=== PATIENT | female | born 1990 | race Caucasian/White ===

== ENCOUNTER 2017-09-05 00:55 | Observation (INO) | payer BC ==
[2017-09-05] MEDS ORDERED: Promethazine HCl 12.5 MG in Sodium Chloride 0.9% 50 ML IVPB PRN (05:11)
[2017-09-05] MEDS ORDERED: Acetaminophen 325 MG TAB PO PRN (05:12)
[2017-09-05] MEDS ORDERED: Sodium Chloride 0.9% 1,000 ML IV SCH (05:12)
[2017-09-05 06:57] VITALS: BMI 28.8
[2017-09-05] MEDS ORDERED: AMOXicillin 250 MG CAP PO SCH (07:00)
[2017-09-05] MEDS ORDERED: Clarithromycin 500 MG TAB PO SCH (07:00)
[2017-09-05 08:17] VITALS: BP 102/55; TEMP 98.2
--- NOTE | 2017-09-05 12:47 | HP ---
DATE OF ENCOUNTER: 09/05/2017 PRIMARY STOCK LAYER: Dr. Lerma in [place]. CHIEF COMPLAINT: Abdominal pain, constipation, nausea, and vomiting. HISTORY OF PRESENT ILLNESS: The patient is a 26-year-old female G4, P3 with an intrauterine pregnan cy confirmed by ultrasound of 14 weeks, who presented to the emergency room in [place] with couple day history of increasing abdominal pain, nausea, vomiting, and was sent here to the [facility] for further evaluation. The patient had a confirmed IUP here at [facility] in [place], [place] and after ER evaluation was thought to be dehydrated and have problems with hyp eremesis gravidarum and was admitted for observation. Here on the floor, I have evaluated the patie nt myself. The patient reports that she has had a longstanding history of abdominal pain while eati ng that has been so significant that she has refrained from eating since this summer well below her usual and has lost dropped 6 sizes in her clothing. The patient reports that she also has been havi ng a problem with constipation at times going more than a week before having a bowel movement. She denies any problems before a couple days ago with recurrent nausea and vomiting. The patient has a primary OB doctor in [place]. The patient denies any fever, though she says she has had some chills, denies chest pain, tho ugh she reports occasional shortness of breath. She denies persistent nausea and vomiting, though s he has had vomiting before she came here. She has had nothing since presenting to the emergency dominic . The patient denies any new rashes. She reports constipation. Denies any vaginal bleeding or le akage of fluid or urinary symptoms. The patient reports she has had in the last couple days had a v [place] large or yesterday had a very large bowel movement, emptying her bowels well and at the end of h er bowel movement, she reports dark melena stools. During the emergency room evaluation, the patien t was noted to have a rectal exam and they did not confirm blood in her stool. PAST MEDICAL HISTORY: History of urinary reflux with recurrent urinary tract infections, though she has not had a urinary tract infection for quite some time now. PAST SURGICAL HISTORY: Tonsillectomy and a tubal ligation and reversal of the tubal ligation. SOCIAL HISTORY: Denies drug, alcohol or tobacco use. ALLERGIES: No known drug allergies. MEDICATIONS: vitamins. OB LABS: Unavailable. REVIEW OF SYSTEMS: Per HPI. PHYSICAL EXAMINATION: VITAL SIGNS: Blood pressure 111/63, temperature 98.6, pulse of 66, and respiratory rate 18. GENERAL: She appears to be in no acute distress. She is alert and oriented, cooperative and pleasa nt to interact with. HEENT: Normocephalic and atraumatic. LUNGS: Clear to auscultation bilaterally. HEART: Regular rate and rhythm. ABDOMEN: Soft. She does have a little bit of tenderness in the epigastric region, but no rebound, no peritoneal signs, no guarding. EXTREMITIES: Nontender and nonedematous. GENITOURINARY: Has been deferred. LABORATORY DATA: CBC: White count of 9.3, hemoglobin 13.6, hematocrit 39.8, and platelets of 254,0 00. Sodium 136, potassium 3.5, chloride 105, bicarbonate 21, BUN is 5, creatinine is 0.65, glucose 96, AST 15, ALT 9, lipase is 18. Urine with 15 of ketones, trace leukocyte esterase, negative nitr ites, negative RBCs, negative white blood cells, negative bacteria. The patient had an ultrasound d one at her primary OB's confirming an IUP. ASSESSMENT AND PLAN: The patient is a 26-year-old G4, P3 female with an intrauterine at 1 6 weeks who has presented for abdominal pain, nausea and vomiting. After taking a careful history, her weight loss during and anhedonia or anorexia is more likely due to gastric ulcer then hyperemesis gravidarum at this time as the patient is not having persistent vomiting outside the las t couple days, but has had abdominal pain and decreased appetite and food intake for the last severa l months. The patient currently has little abdominal pain and has not vomited since coming into the hospital. I have given the patient a prescription of Protonix to be taken daily and some Zofran to help with the nausea should that return. I have given her instructions to focus on her constipatio n as going up to a week or longer without a bowel movement can also create a situation or abdominal pain, anhedonia or anorexia and nausea at present. The patient has been given the option of using M etamucil, MiraLax, or a home concoction of one part wheat bran, one part prune juice, and one part a pplesauce to be taken 1 tablespoon a day for a couple days and increase by 1 tablespoon every 2-3 da ys until having a regular bowel movement. She also asked to follow up with her primary OB in the ne xt 10 days or sooner should she continue to have symptoms. The patient is being discharged to home and prescription had been sent to the [facility]'s on [address]
== END 2017-09-05 08:32 | disposition home or self-care (01) ==
LOC: ERS 00:55 → 3SW 02:25
PROVIDERS: ADMIT Obstetrics & Gynecology; ATTEND Obstetrics & Gynecology
DX: O99.89 Other specified diseases and conditions complicating pregnancy, childbirth and the puerperium (principal); R10.9 Unspecified abdominal pain; K59.00 Constipation, unspecified; R11.2 Nausea with vomiting, unspecified; Z3A.16 16 weeks gestation of pregnancy; Z79.899 Other long term (current) drug therapy; Z90.89 Acquired absence of other organs; Z98.890 Other specified postprocedural states; Z87.440 Personal history of urinary (tract) infections
CPT/HCPCS: 99285; G0378